=== PATIENT | female | born 1985 | race Caucasian/White ===

== ENCOUNTER 2022-09-04 09:51 | Observation (INO) ==
[~2022-09-04 09:51] MED LIST: Naloxone 0.4 mg VIAL 0.4 mg/ml 1 ml VIAL IV PUSH PRN
[2022-09-04] MEDS ORDERED: Ondansetron 4 mg VIAL 2 MG/ML 2 ml VIAL IV ONE (10:00)
[2022-09-04] MEDS ORDERED: Scopolamine 1 mg/72hr PATCH TRANSDERM ONE (10:00)
[2022-09-04] MEDS ORDERED: Clindamycin 900 MG/D5W BAG IVPB ONE (10:00)
[2022-09-04] MEDS ORDERED: oxyCODONE SR 10 mg TAB PO ONE (10:00)
[2022-09-04 10:26] LABS: Hematocrit 47 % (35-47); Hemoglobin 16.2 g/dL (12.0-16.0); Mean Corpuscular HGB Conc 34 g/dL (31-36); Mean Corpuscular Hemoglobin 29 pg (27-31); Mean Corpuscular Volume 85 fL (80-97); Mean Platelet Volume 8.5 fL (7.4-10.4); Platelet Count 286 10^3/uL (150-450); Red Blood Count 5.54 10^6 /uL (3.70-4.87); Red Cell Distribution Width 13 % (10-15); White Blood Count 8.1 10^3/uL (3.5-10.8)
[2022-09-04] MEDS ORDERED: oxyCODONE SR 10 mg TAB ONE (10:28)
[2022-09-04] MEDS ORDERED: Ondansetron 4 mg VIAL 2 MG/ML 2 ml VIAL ONE (10:28)
[2022-09-04] MEDS ORDERED: Scopolamine 1 mg/72hr PATCH ONE (10:28)
[2022-09-04 10:35] LABS: Activated Partial Thrombo Time 37.7 seconds (26.0-38.0); INR 1.01 (0.89-1.11)
[2022-09-04 11:17] LABS: HCG Pregnancy < 0.60 mIU/mL
[2022-09-04 11:18] LABS: Anion Gap 7 mmol/L (2-11); Blood Urea Nitrogen 13 mg/dL (6-24); CO2 Carbon Dioxide 27 mmol/L (22-32); Calcium 9.5 mg/dL (8.6-10.3); Chloride 105 mmol/L (101-111); Glucose 90 mg/dL (70-100); Sodium 139 mmol/L (135-145); eGFR CKD-EPI 99.4 (>60)
[2022-09-04] MEDS ORDERED: Heparin 2 UNITS/ML IVPREMIX 3,000 UNIT/1,500 ML BAG IV ONE (11:34)
[2022-09-04] MEDS ORDERED: Lidocaine 1% VIAL 10 MG/ML VIAL 30 ML ONE (11:34)
[2022-09-04] MEDS ORDERED: Iohexol 350 (CONTRAST) 100 ML PAK IV ONE ×2 (11:34→14:02)
[2022-09-04] MEDS ORDERED: nitroGLYCERIN DRIP 25,000 MCG/250 ML BTL ONE (11:57)
[2022-09-04] MEDS ORDERED: Midazolam 5 mg/5 ml VIAL 1 mg/ml 5 ml VIAL (5 mg) ONE (11:57)
[2022-09-04] MEDS ORDERED: fentaNYL 250 mcg/5 ml 50 MCG/ML 5 ml VIAL (250 MCG) ONE (11:57)
[2022-09-04] MEDS ORDERED: HYDROmorphone PCA 20 MG/20 ML PCA.SYRING PCA SCH (13:00)
[2022-09-04] MEDS ORDERED: HYDROmorphone 0.5 MG/0.5 ML SYRINGE ONE ×3 (13:07→14:00)
[2022-09-04] MEDS ORDERED: LORazepam 2 mg VIAL 1 ml ONE (14:07)
[2022-09-04] MEDS ORDERED: Lorazepam PYXIS KEY ONE (14:07)
[2022-09-04] MEDS ORDERED: Lorazepam PYXIS KEY PRN (17:59)
[2022-09-04] MEDS ORDERED: LORazepam 2 mg VIAL 1 ml IV PUSH PRN (17:59)
[2022-09-04] MEDS: NS 0.9% 1,000 ML IV SCH ×2 (18:00→22:59)
[2022-09-04] MEDS: Ondansetron 4 mg VIAL 2 MG/ML 2 ml VIAL IV SCH (20:26)
[2022-09-05] MEDS: Ondansetron 4 mg VIAL 2 MG/ML 2 ml VIAL IV SCH ×2 (02:11→08:10)
[2022-09-05] MEDS ORDERED: HYDROcodone/ACETAMIN 5/325 mg TAB PO PRN (09:02)
[2022-09-05] MEDS ORDERED: Ketorolac 10 mg TAB (NF) PO SCH (10:00)
[2022-09-05] MEDS ORDERED: Scopolamine 1 mg/72hr PATCH TRANSDERM SCH (10:00)
== END 2022-09-05 10:28 | disposition home or self-care (01) ==
LOC: SSU 09:51 → CHICATH 09:51
PROVIDERS: ADMIT Internal Medicine; ATTEND Internal Medicine
PROC: ANG.UFE (2022-09-04 12:10)

== ENCOUNTER 2023-01-09 00:17 | Inpatient (IN) ==
[2023-01-09] MEDS ORDERED: Morphine 4 MG/ML VIAL (1 ml) IV ONE (00:46)
[2023-01-09] MEDS: NS 0.9% 1000 ml BAG 1,000 ML IV SCH ×2 (03:35→13:53)
[2023-01-09] MEDS: Morphine 4 MG/ML VIAL (1 ml) IV PRN (04:28)
[2023-01-09 06:26] LABS: ABS Eosinophils 0.1 10^3/ul (0-0.6); ABS Lymphocytes 1.7 10^3/ul (1.0-4.8); ABS Monocytes 0.5 10^3/ul (0-0.8); ABS Neutrophils 4.9 10^3/ul (1.5-7.7); Eosinophil % 0.8 %; Hematocrit 40 % (35-47); Hemoglobin 13.8 g/dL (12.0-16.0); Lymphocyte % 23.7 %; Mean Corpuscular HGB Conc 34 g/dL (31-36); Mean Corpuscular Hemoglobin 29 pg (27-31); Mean Corpuscular Volume 84 fL (80-97); Mean Platelet Volume 8.1 fL (7.4-10.4); Platelet Count 219 10^3/uL (150-450); Red Blood Count 4.82 10^6 /uL (3.70-4.87); Red Cell Distribution Width 14 % (10-15); White Blood Count 7.2 10^3/uL (3.5-10.8)
[2023-01-09 07:32] LABS: Albumin 3.6 g/dL (3.2-5.2); Albumin/Globulin Ratio 1.3 (1-3); C Reactive Protein 5.6 mg/L (<8.01); Calcium 8.6 mg/dL (8.6-10.3); Creatinine, Serum 0.78 mg/dL (0.51-0.95); Globulin 2.7 g/dL (2-4); Potassium 3.8 mmol/L (3.5-5.0); Total Bilirubin 0.9 mg/dL (0.2-1.0); Total Protein 6.3 g/dL (6.4-8.9); eGFR CKD-EPI 100.9 (>60)
[2023-01-09] MEDS ORDERED: Diatrizoate Meg/Sod(CONTRAST) 30 ML ORAL.SOLN PO ONE (10:00)
[2023-01-10] MEDS: NS 0.9% 1000 ml BAG 1,000 ML IV SCH ×2 (00:10→12:44)
[2023-01-10] MEDS: Morphine 2 MG/ML SYRINGE IV PRN ×3 (00:19→20:57)
[2023-01-10] MEDS ORDERED: Ondansetron 4 mg VIAL 2 MG/ML 2 ml VIAL IV ONE (02:48)
[2023-01-10] MEDS: Piperacillin/Tazobac ADVAN 3.375 GM in NS 0.9% 100 ml BAG 100 ML IV SCH ×2 (12:44→19:31)
[2023-01-11] MEDS: Morphine 2 MG/ML SYRINGE IV PRN ×2 (01:59→19:21)
[2023-01-11] MEDS: NS 0.9% 1000 ml BAG 1,000 ML IV SCH (03:05)
[2023-01-11] MEDS: Piperacillin/Tazobac ADVAN 3.375 GM in NS 0.9% 100 ml BAG 100 ML IV SCH ×3 (03:06→18:21)
[2023-01-11] MEDS: Morphine 4 MG/ML VIAL (1 ml) IV PRN (06:55)
[2023-01-11 08:41] LABS: ABS Lymphocytes 0.9 10^3/ul (1.0-4.8); ABS Monocytes 0.4 10^3/ul (0-0.8); ABS Neutrophils 8.3 10^3/ul (1.5-7.7); Eosinophil % 0.5 %; Hematocrit 40 % (35-47); Hemoglobin 14.5 g/dL (12.0-16.0); Lymphocyte % 9.1 %; Mean Corpuscular HGB Conc 36 g/dL (31-36); Mean Corpuscular Hemoglobin 30 pg (27-31); Mean Corpuscular Volume 84 fL (80-97); Mean Platelet Volume 8.9 fL (7.4-10.4); Platelet Count 240 10^3/uL (150-450); Red Blood Count 4.81 10^6 /uL (3.70-4.87); Red Cell Distribution Width 13 % (10-15); White Blood Count 9.7 10^3/uL (3.5-10.8)
[2023-01-11 08:54] LABS: Calcium 8.3 mg/dL (8.6-10.3); Creatinine, Serum 0.75 mg/dL (0.51-0.95); eGFR CKD-EPI 105.7 (>60)
[2023-01-11] MEDS ORDERED: Iohexol 350 (CONTRAST) 500 ML MDV IV ONE (10:34)
[2023-01-11] MEDS: D5W 1/2 NS 1000 ml BAG 1,000 ML IV SCH ×2 (10:52→19:23)
[2023-01-12] MEDS: Morphine 2 MG/ML SYRINGE IV PRN ×3 (01:55→18:09)
[2023-01-12] MEDS: Piperacillin/Tazobac ADVAN 3.375 GM in NS 0.9% 100 ml BAG 100 ML IV SCH ×3 (02:46→19:33)
[2023-01-12] MEDS: D5W 1/2 NS 1000 ml BAG 1,000 ML IV SCH ×3 (02:46→18:11)
[2023-01-12 06:45] LABS: Calcium 8.5 mg/dL (8.6-10.3); Creatinine, Serum 0.74 mg/dL (0.51-0.95); Potassium 3.8 mmol/L (3.5-5.0); eGFR CKD-EPI 107.5 (>60)
[2023-01-13] MEDS: Morphine 2 MG/ML SYRINGE IV PRN (00:12)
[2023-01-13] MEDS: Piperacillin/Tazobac ADVAN 3.375 GM in NS 0.9% 100 ml BAG 100 ML IV SCH ×3 (02:18→20:39)
[2023-01-13] MEDS: D5W 1/2 NS 1000 ml BAG 1,000 ML IV SCH ×3 (02:19→20:58)
[2023-01-13 05:39] LABS: ABS Eosinophils 0.1 10^3/ul (0-0.6); ABS Lymphocytes 1.4 10^3/ul (1.0-4.8); ABS Monocytes 0.5 10^3/ul (0-0.8); Hematocrit 36 % (35-47); Hemoglobin 12.8 g/dL (12.0-16.0); Lymphocyte % 23.5 %; Mean Corpuscular HGB Conc 35 g/dL (31-36); Mean Corpuscular Hemoglobin 29 pg (27-31); Mean Corpuscular Volume 83 fL (80-97); Mean Platelet Volume 8.5 fL (7.4-10.4); Platelet Count 230 10^3/uL (150-450); Red Blood Count 4.34 10^6 /uL (3.70-4.87); Red Cell Distribution Width 13 % (10-15); White Blood Count 6.1 10^3/uL (3.5-10.8)
[2023-01-13 05:48] LABS: INR 1.33 (0.88-1.18)
[2023-01-13 05:51] LABS: Calcium 8.4 mg/dL (8.6-10.3); Creatinine, Serum 0.76 mg/dL (0.51-0.95); Potassium 3.6 mmol/L (3.5-5.0); eGFR CKD-EPI 104.1 (>60)
[2023-01-13] MEDS ORDERED: fentaNYL 100 mcg/2 ml 50 MCG/ML VIAL IV PRN (13:07)
[2023-01-13] MEDS ORDERED: oxyCODONE/Acetamin 5/325 mg TAB PO PRN (13:07)
[2023-01-13] MEDS ORDERED: Naloxone 0.4 mg VIAL 0.4 mg/ml 1 ml VIAL IV PRN (13:07)
[2023-01-13] MEDS ORDERED: Ondansetron 4 mg VIAL 2 MG/ML 2 ml VIAL IV PRN (13:07)
[2023-01-13] MEDS ORDERED: Bupivacaine 0.25% SDV PF 10 ML VIAL INJ ONE (13:14)
[2023-01-13] MEDS ORDERED: Midazolam 2 mg/2 ml VIAL 1 mg/ml 2 ml VIAL (2 mg) ONE (13:30)
[2023-01-13] MEDS ORDERED: Ondansetron 4 mg VIAL 2 MG/ML 2 ml VIAL ONE (13:30)
[2023-01-13] MEDS ORDERED: Rocuronium 50 mg VIAL 10 mg/ml 5 ml VIAL (50 mg) ONE ×2 (13:30→15:44)
[2023-01-13] MEDS ORDERED: Lidocaine 2% PF 5 ML VIAL ONE (13:30)
[2023-01-13] MEDS ORDERED: Propofol 10 MG/ML 20 ML BTL ONE (13:30)
[2023-01-13] MEDS ORDERED: Dexamethasone IV 4 MG/ML VIAL 1 ml VIAL ONE (13:30)
[2023-01-13] MEDS ORDERED: fentaNYL 100 mcg/2 ml 50 MCG/ML VIAL ONE ×2 (13:30→14:30)
[2023-01-13] MEDS ORDERED: HYDROmorphone 0.5 MG/0.5 ML SYRINGE ONE ×2 (15:23→15:39)
[2023-01-13] MEDS ORDERED: Acetaminophen IV 1 GM/100ML 1,000 MG/100 ML BAG IV PRN (17:41)
[2023-01-14] MEDS: D5W 1/2 NS 1000 ml BAG 1,000 ML IV SCH (05:01)
[2023-01-14 09:08] LABS: Hematocrit 40 % (35-47); Hemoglobin 13.9 g/dL (12.0-16.0)
[2023-01-14 09:59] LABS: Calcium 8.8 mg/dL (8.6-10.3); Creatinine, Serum 0.71 mg/dL (0.51-0.95); Potassium 3.2 mmol/L (3.5-5.0); eGFR CKD-EPI 112.9 (>60)
[2023-01-14 10:24] LABS: Magnesium 1.5 mg/dL (1.9-2.7)
[2023-01-14] MEDS ORDERED: KCL 20 MEQ/100 ML IVPREMIX 20 MEQ/100 ML BAG IV SCH (11:00)
[2023-01-14] MEDS ORDERED: Potassium Chlor 20 meq TAB.ER PO ONE ×2 (11:52→12:43)
[2023-01-14 17:21] VITALS: BP 139/90
== END 2023-01-14 17:55 | disposition home or self-care (01) | DRG 224 ==
LOC: ED 00:17 → EDHOLD 00:55 → MED 12:25
PROVIDERS: ADMIT Internal Medicine; ATTEND Internal Medicine